=== PATIENT | female | born 1940 | race Caucasian/White ===

== ENCOUNTER 2016-07-26 17:31 | Inpatient (IN) | payer OTHER ==
[~2016-07-26] VITALS: Ht 177.8 cm; Wt 43.1 kg
--- NOTE | ~2016-07-26 | EKG ---
[address] [address] ELECTROCARDIOGRAM REPORT Name: HAO BARNETT Room #: [facility] .R.#: [id number] Admission: 07/26/16 Attend Phys: Sky Best MD Discharge: Date of : 36 Report #: [id number] THIS REPORT FOR: //name// [facility] ED Test Date: 2016-07-26 Test Time: 17:57:12 Pat Name: HAO BARNETT Department: Room: [facility] Gender: F Cable Maker: : 1940 Requested By: Martita Tejeda Order Number: [id number] MD: Michael Viera Measurements Intervals [place] Rate: 98 P: 85 [place]: 100 QRS: 77 QRSD: 93 T: 60 QT: 334 QTc: 427 Interpretive Statements Sinus rhythm Nonspecific ST and T wave abnormality No previous ECG available for comparison Electronically Signed On 07-28-2016 14:09:43 DIRECT SUPPORT SPECIALIST by Michael Viera [email or web address] <ELECTRONICALLY SIGNED> By: Michael Viera MD, [facility] 07/28/16 1409 1757 175 Michael Viera MD, FACC /EPI
--- NOTE | ~2016-07-26 | HC ---
[facility] [place] [address] CONSULTATION Name: HAO BARNETT Room #: 303[facility] M.R.#: [id number] Admission: 07/26/16 Attend Phys: Sky Best MD Discharge: 07/28/16 Date of : 36 Report #: [id number] THIS REPORT FOR: //name// CC: Mayra Best REASON FOR CONSULTATION: Hypernatremia. REASON FOR PRESENTATION: This is a 75-year-old with mental status issues. HISTORY OF PRESENT ILLNESS: A 75-year-old who has dementia. She is not able to provide us with history, however, her daughter at bedside stated that she has advanced dementia. She has not been eating, she has not been drinking. She is not aware of any previous kidney problems. She realized that her mom had been lethargic. She decided to ask the nurses there to do some labs and this showed sodium of 165. They sent the patient for further evaluation and management. No previous similar episodes. She is known to have chronic kidney disease, dementia, hypothyroidism. Her baseline creatinine per the family is within normal range, but we do not have records of her baseline creatinine. No fever or chills. No urinary symptoms per the daughter. SOCIAL HISTORY: She resides in a nursing facility. No drug or alcohol abuse. PAST MEDICAL HISTORY: Dementia and hypothyroidism. REPORTED MEDICATIONS: 1. Trazodone. 2. Naproxen. 3. Magnesium hydroxide. 4. Levothyroxine. ALLERGIES: SULFA. REVIEW OF SYSTEMS: Per the family. GENERAL: Significant for weakness and lethargy. CARDIOVASCULAR: No chest pain or palpitation. PULMONARY: No cough or hemoptysis. GASTROINTESTINAL: Decreased p.o. intake, no nausea or vomiting. NEUROLOGICAL: Baseline dementia. GENITOURINARY: No frequency, urgency, hesitancy. PHYSICAL EXAMINATION: GENERAL: The patient is disoriented, in no apparent distress. VITAL SIGNS: Blood pressure this morning was 101/60. Temperature was 36.4. HEAD AND NECK: No jugular venous distention, no bruit, no thyromegaly. CHEST: No crackles. [facility] [address] [place] [address] CONSULTATION Name: HAO BARNETT Room #: 303[facility] ..#: [id number] Admission: 07/26/16 Attend Phys: Sky Best MD Discharge: 07/28/16 Date of : 36 Report #: [id number] CARDIOVASCULAR: No rub detected. ABDOMEN: Soft, nontender with no hepatosplenomegaly. LOWER EXTREMITIES: No edema with intact peripheral pulses. NEUROLOGIC: No gross deficit demented with confusion. LABORATORY VALUES: Reviewed. Creatinine is down to 1.9, sodium is 159, down from 170. UA was clear. IMAGES: None. ASSESSMENT, IMPRESSION, PLAN: 1. Hypernatremia. 2. Acute kidney injury due to Naprosyn. 3. Hypothyroidism. 4. Dementia. 5. Watch sodium and correct carefully. 6. Reduce the rate of the intravenous infusion. 7. Sodium every 4 hours. 8. Her hypernatremia is due to lack of access to free water and this should correct with the current intravenous fluid regimen, however, this will be recurrent issue given her mental status. 9. Her acute kidney injury is related to nonsteroidal anti-inflammatory drugs and this should improve. 10. We will continue to follow along. <ELECTRONICALLY SIGNED> By: Delfina Barahona MD 08/02/16 0926 [id number] Delfina Barahona MD /nt
[2016-07-26 17:32] VITALS: BP 127/74
[2016-07-26] MEDS ORDERED: LEVOTHYROXIN0.025 MG PO (18:03)
[2016-07-26] MEDS ORDERED: CYMBALTA30 MG PO (18:03)
[2016-07-26] MEDS ORDERED: MIRALAX17 GM PO (18:05)
[2016-07-26] MEDS ORDERED: STOOL SOFT50 MG/5 ML PO (18:06)
[2016-07-26] MEDS ORDERED: TRAZODONE HCL50 MG PO (18:08)
[2016-07-26] MEDS ORDERED: NAPROSYN500 MG PO (18:09)
[2016-07-26] MEDS ORDERED: ATIVAN1 MG PO (18:09)
[2016-07-26] MEDS ORDERED: REMERON15 MG PO (18:10)
[2016-07-26] MEDS ORDERED: APAP650 PO (18:11)
[2016-07-26] MEDS ORDERED: MILK OF MA2400 MG/10 PO (18:12)
[2016-07-26] MEDS ORDERED: RULOX SUSPENSI355 ML PO (18:12)
[2016-07-26 18:17] LABS: ABSOLUTE NEUTROPHILS 8.6 thou/uL (1.4-8.2); BASOPHILS 1.3 % (0.0-2.0); EOSINOPHILS 2.5 % (0.0-3.0); HEMATOCRIT 43.8 % (37.0-47.0); HEMOGLOBIN 13.8 gm/dL (12.0-15.0); LYMPHOCYTES 16.9 % (24.0-44.0); MANUAL DIFF NO; MCH 29.5 pg (26.0-34.0); MCHC 31.5 % (28.0-37.0); MCV 93.7 fL (80.0-100.0); MONOCYTES 5.2 % (1.0-8.0); PLATELET COUNT 271 thou/uL (150-400); POLYS 74.1 % (36.0-66.0); RBC 4.67 mil/uL (4.20-5.00); RDW 14.3 % (10.5-14.5); WBC 11.6 thou/uL (4.0-11.0)
[2016-07-26 18:22] LABS: CALCIUM 9.7 mg/dL (8.5-10.1); CREATININE 2.1 mg/dL (0.6-1.3)
[2016-07-26 18:30] LABS: ALBUMIN 3.3 g/dL (3.4-5.0); TOTAL BILIRUBIN 0.5 mg/dL (<0.1-1.0); TOTAL PROTEIN 7.8 g/dL (6.4-8.2); TROPONIN-I 0.06 ng/mL (<0.04-0.07)
[2016-07-26 18:32] LABS: POTASSIUM 4.7 mmol/L (3.5-5.1)
[2016-07-26 18:48] LABS: URINE BILIRUBIN NEGATIVE (Negative); URINE BLOOD NEGATIVE (Negative); URINE COLOR YELLOW; URINE GLUCOSE-RANDOM* NEGATIVE (Negative); URINE KETONES NEGATIVE (Negative); URINE NITRITE NEGATIVE (Negative); URINE PROTEIN (DIPSTICK) NEGATIVE (Negative); URINE SPECIFIC GRAVITY 1.025 (1.003-1.035); URINE UROBILINOGEN 0.2 E.U./dl (0.2-1.0)
[2016-07-26 20:00] VITALS: BP 114/57
[2016-07-26 20:30] VITALS: BP 127/92
[2016-07-27] VITALS: BP 110/75
[2016-07-27 03:40] VITALS: BP 101/60
[2016-07-27 03:45] LABS: ABSOLUTE NEUTROPHILS 6.3 thou/uL (1.4-8.2); BASOPHILS 1.2 % (0.0-2.0); EOSINOPHILS 4.4 % (0.0-3.0); HEMATOCRIT 37.6 % (37.0-47.0); HEMOGLOBIN 11.9 gm/dL (12.0-15.0); LYMPHOCYTES 19.6 % (24.0-44.0); MCH 29.8 pg (26.0-34.0); MCHC 31.6 % (28.0-37.0); MCV 94.1 fL (80.0-100.0); MONOCYTES 7.3 % (1.0-8.0); PLATELET COUNT 225 thou/uL (150-400); POLYS 67.5 % (36.0-66.0); RDW 14.3 % (10.5-14.5); WBC 9.4 thou/uL (4.0-11.0)
[2016-07-27 03:48] LABS: MANUAL DIFF NO
[2016-07-27 04:35] LABS: ALBUMIN 2.7 g/dL (3.4-5.0); CALCIUM 8.9 mg/dL (8.5-10.1); CREATININE 1.9 mg/dL (0.6-1.3); MAGNESIUM 2.2 mg/dL (1.8-2.4); POTASSIUM 3.9 mmol/L (3.5-5.1); TOTAL BILIRUBIN 0.6 mg/dL (<0.1-1.0); TOTAL PROTEIN 6.7 g/dL (6.4-8.2)
[2016-07-27 07:10] VITALS: BP 117/79
[2016-07-27 11:20] VITALS: BP 90/59
[2016-07-27 16:45] VITALS: BP 101/57
[2016-07-27 19:22] VITALS: BP 120/57
[2016-07-28 04:01] VITALS: BP 89/49
[2016-07-28 06:15] VITALS: BP 106/45
[2016-07-28 08:05] LABS: ALBUMIN 2.7 g/dL (3.4-5.0); CALCIUM 9.3 mg/dL (8.5-10.1); CREATININE 1.3 mg/dL (0.6-1.3); MAGNESIUM 2.1 mg/dL (1.8-2.4); PHOSPHORUS 3.9 mg/dL (2.5-4.9); POTASSIUM 4.4 mmol/L (3.5-5.1); TOTAL BILIRUBIN 0.8 mg/dL (<0.1-1.0); TOTAL PROTEIN 6.7 g/dL (6.4-8.2)
[2016-07-28 08:26] VITALS: BP 120/65
== END 2016-07-28 14:30 | DRG 682 ==
LOC: ER 17:31 → EROBS 18:46 → 3N 18:46
PROVIDERS: Hospitalist; Nurse Practitioner; Physician Assistant
DX: N17.9 Acute kidney failure, unspecified (principal); G93.41 Metabolic encephalopathy; E87.0 Hyperosmolality and hypernatremia; T39.315A Adverse effect of propionic acid derivatives, initial encounter; N18.9 Chronic kidney disease, unspecified; F03.90 Unspecified dementia, unspecified severity, without behavioral disturbance, psychotic disturbance, mood disturbance, and anxiety; E86.0 Dehydration; E03.9 Hypothyroidism, unspecified; E87.8 Other disorders of electrolyte and fluid balance, not elsewhere classified; Z88.2 Allergy status to sulfonamides; Z79.899 Other long term (current) drug therapy; Y92.89 Other specified places as the place of occurrence of the external cause
CPT/HCPCS: 10096

== ENCOUNTER 2017-04-21 13:50 | Emergency (ER) | payer OTHER ==
[~2017-04-21] VITALS: Ht 154.9 cm; Wt 50.4 kg
--- NOTE | ~2017-04-21 | EKG ---
[address] [address] ELECTROCARDIOGRAM REPORT Name: HAO BARNETT Room #: [facility]#: [id number] Admission: 04/21/17 Attend Phys: Discharge: Date of : 36 Report #: [id number] THIS REPORT FOR: //name// [facility] ED Test Date: 2017-04-21 Test Time: 14:31:51 Pat Name: HAO BARNETT Department: Room: Gender: F School Resource Officer: Justin LOU : 1940 Requested By: Brunilda Tejeda Order Number: [id number] MD: Rajan Powell Measurements Intervals [place] Rate: 85 P: 54 CT: 146 QRS: 51 QRSD: 84 T: 63 QT: 379 QTc: 451 Interpretive Statements Sinus rhythm Compared to ECG 07/26/2016 17:57:12 ST (T wave) deviation no longer present Electronically Signed On 04-21-2017 16:38:41 CDT by Rajan Powell [email or web address] <ELECTRONICALLY SIGNED> By: Rajan Powell MD 04/21/17 1638 1431 30 Rajan Powell MD /SHANICE
[~2017-04-21 13:50] MED LIST: APAP650 PO; ATIVAN1 MG PO; CYMBALTA30 MG PO; LEVOTHYROXIN0.025 MG PO; MILK OF MA2400 MG/10 PO; MIRALAX17 GM PO; NAPROSYN500 MG PO; REMERON15 MG PO; RULOX SUSPENSI355 ML PO; STOOL SOFT50 MG/5 ML PO; TRAZODONE HCL50 MG PO
[2017-04-21] MEDS ORDERED: PROTONIX40 M1 PO (15:04)
[2017-04-21 15:05] LABS: URINE BILIRUBIN NEGATIVE (Negative); URINE BLOOD NEGATIVE (Negative); URINE COLOR YELLOW; URINE GLUCOSE-RANDOM* NEGATIVE (Negative); URINE KETONES NEGATIVE (Negative); URINE NITRITE NEGATIVE (Negative); URINE PROTEIN (DIPSTICK) NEGATIVE (Negative); URINE UROBILINOGEN 0.2 E.U./dl (0.2-1.0)
[2017-04-21] MEDS ORDERED: TRAZODONE HCL50 MG PO (15:05)
[2017-04-21] MEDS ORDERED: NAPROSYN500 MG PO (15:05)
[2017-04-21] MEDS ORDERED: REMERON15 MG PO (15:06)
[2017-04-21 15:08] LABS: HEMATOCRIT 34.1 % (37.0-47.0); MANUAL DIFF YES; MCH 26.3 pg (26.0-34.0); MCHC 32.2 g/dL (28.0-37.0); MCV 81.6 fL (80.0-100.0); PLATELET COUNT 236 thou/uL (150-400); RBC 4.18 mil/uL (4.20-5.00); RDW 25.4 % (10.5-14.5); WBC 5.5 thou/uL (4.0-11.0)
[2017-04-21] MEDS ORDERED: RULOX SUSPENSI355 ML PO (15:08)
[2017-04-21] MEDS ORDERED: MILK OF MA2400 MG/10 PO (15:08)
[2017-04-21] MEDS ORDERED: TRAMADOL 50 MG50 MG PO (15:10)
[2017-04-21 15:28] LABS: ABSOLUTE NEUTROPHILS 3.7 thou/uL (1.4-8.2); PLATELET ESTIMATE NORMAL; TOTAL CELL COUNT 100
[2017-04-21 15:29] LABS: ANISOCYTOSIS 2+; POLYCHROMASIA SLIGHT
[2017-04-21] MEDS ORDERED: HALDOL5 MG/1 ML PO (15:34)
[2017-04-21 16:29] LABS: CALCIUM 9.4 mg/dL (8.5-10.1); CREATININE 1.5 mg/dL (0.6-1.0); POTASSIUM 4.3 mmol/L (3.5-5.1)
[2017-04-21 16:37] LABS: TROPONIN-I 0.05 ng/mL (<0.04-0.07)
== END 2017-04-21 17:10 | disposition home or self-care (01) ==
LOC: ER 13:50
PROVIDERS: Emergency Medicine
DX: R55 Syncope and collapse (principal); E03.9 Hypothyroidism, unspecified; F03.90 Unspecified dementia, unspecified severity, without behavioral disturbance, psychotic disturbance, mood disturbance, and anxiety; Z96.641 Presence of right artificial hip joint; Z90.710 Acquired absence of both cervix and uterus; Z98.890 Other specified postprocedural states; Z88.2 Allergy status to sulfonamides

== ENCOUNTER 2017-09-08 09:16 | Emergency (ER) | payer OTHER ==
[~2017-09-08] VITALS: Ht 172.7 cm; Wt 63.5 kg
--- NOTE | ~2017-09-08 | EKG ---
[address] [address] ELECTROCARDIOGRAM REPORT Name: HAO BARNETT Room #: [facility]#: [id number] Admission: 09/08/17 Attend Phys: Discharge: 09/08/17 Date of : 36 Report #: [id number] THIS REPORT FOR: //name// [facility] ED Test Date: 2017-09-08 Test Time: 10:24:35 Pat Name: HAO BARNETT Department: Room: Gender: F Scientific Database Curator: anjana : 1940 Requested By: Mirna Burr Order Number: [id number] MD: Michael Viera Measurements Intervals [place] Rate: 65 P: 52 [place]: 135 QRS: 59 QRSD: 115 T: 58 QT: 417 QTc: 434 Interpretive Statements Sinus rhythm No significant abnormality Compared to ECG 04/21/2017 14:31:51 No significant change was found Electronically Signed On 09-08-2017 17:31:45 ALLIANCES CONSULTANT by Michael Viera [email or web address] <ELECTRONICALLY SIGNED> By: Michael Viera MD, [facility] 09/08/17 1731 1024 1024 Michael Viera MD, FACC /EPI
[~2017-09-08 09:16] MED LIST changes: +HALDOL5 MG/1 ML PO; +PROTONIX40 M1 PO; +TRAMADOL 50 MG50 MG PO
[2017-09-08 09:46] LABS: ANION GAP 11 mmol/L (7-16); BUN 33 mg/dL (7-18); CALCIUM 8.8 mg/dL (8.5-10.1); CHLORIDE 111 mmol/L (98-107); CO2 19 mmol/L (21-32); CREATININE 1.3 mg/dL (0.6-1.0); GLUCOSE 119 mg/dL (74-106); POTASSIUM 4.4 mmol/L (3.5-5.1); SODIUM 141 mmol/L (136-145)
[2017-09-08 09:52] LABS: ALBUMIN 2.9 g/dL (3.4-5.0); DIRECT BILIRUBIN < 0.1 mg/dL (<0.1-0.3); LIPASE 189 U/L (73-393); SGOT 18 U/L (15-37); SGPT 14 U/L (30-65); TOTAL BILIRUBIN 0.5 mg/dL (<0.1-1.0); TOTAL PROTEIN 6.3 g/dL (6.4-8.2)
[2017-09-08 10:12] LABS: ABSOLUTE NEUTROPHILS 9.6 thou/uL (1.4-8.2); BASOPHILS 0.4 % (0.0-2.0); EOSINOPHILS 2.7 % (0.0-3.0); HEMATOCRIT 38.9 % (37.0-47.0); HEMOGLOBIN 12.8 gm/dL (12.0-15.0); LYMPHOCYTES 7.6 % (24.0-44.0); MCH 30.5 pg (26.0-34.0); MCHC 32.8 g/dL (28.0-37.0); MCV 93.1 fL (80.0-100.0); MONOCYTES 6.4 % (1.0-8.0); PLATELET COUNT 222 thou/uL (150-400); POLYS 82.9 % (36.0-66.0); RBC 4.18 mil/uL (4.20-5.00); RDW 14.1 % (10.5-14.5); WBC 11.6 thou/uL (4.0-11.0)
[2017-09-08 11:47] LABS: URINE BILIRUBIN NEGATIVE (Negative); URINE BLOOD NEGATIVE (Negative); URINE CLARITY CLEAR; URINE COLOR YELLOW; URINE GLUCOSE-RANDOM* NEGATIVE (Negative); URINE KETONES NEGATIVE (Negative); URINE LEUKOCYTES-REFLEX 2+ (Negative); URINE NITRITE-REFLEX NEGATIVE (Negative); URINE PROTEIN (DIPSTICK) NEGATIVE (Negative); URINE SPECIFIC GRAVITY 1.015 (1.005-1.035); URINE UROBILINOGEN 0.2 E.U./dl (0.2-1.0)
[2017-09-08 11:55] LABS: BACTERIA-REFLEX >30 Many /HPF (None Seen); CASTS None Seen /LPF (None Seen); CRYSTALS None Seen /LPF (None Seen); SQUAMOUS 4-10 Moderate /LPF (0-3); URINE RBC None Seen /HPF (0-2); URINE WBC-REFLEX 6-15 Few /HPF (0-5)
[2017-09-08] MEDS ORDERED: IRON325 PO (11:55)
[2017-09-08] MEDS ORDERED: CRANBERRY425 MG PO (11:55)
[2017-09-08] MEDS ORDERED: MACRODANTIN100 MG PO (11:57)
[2017-09-08 13:15] VITALS: BP 107/55
[2017-09-08] MEDS ORDERED: KEFLEX500 M1 PO (14:09)
== END 2017-09-08 14:43 | disposition home or self-care (01) ==
LOC: ER 09:16
PROVIDERS: Emergency Medicine
DX: E86.0 Dehydration (principal); N39.0 Urinary tract infection, site not specified; R55 Syncope and collapse; F03.90 Unspecified dementia, unspecified severity, without behavioral disturbance, psychotic disturbance, mood disturbance, and anxiety; E03.9 Hypothyroidism, unspecified; Z90.710 Acquired absence of both cervix and uterus; Z88.1 Allergy status to other antibiotic agents